=== PATIENT | female | born 1980 | race Caucasian/White ===

== ENCOUNTER 2023-12-05 19:19 | Outpatient (CLI) | payer BC ==
--- NOTE | 2023-12-10 17:42 | P.PCN ---
Date of Procedure: 12/05/23 Operative Findings: Polysomnography report Date of services 12/04/2022 History 43-year-old female patient, saw me in the office for symptoms of chronic hypersomnia sleepiness. Her Beaver score was 19. She had loud snoring, witnessed apneas, sleep fragmentation and chronic sleepiness. Based on that, a screening polysomnography was ordered. She has a Mallampati class IV Physical findings The patient has a height of 5 feet and 7 inches, weight of 224 pounds and a body mass index of 35.1 Technical description The patient was studied using a standard complex polysomnography protocol that included recording of the 2 EKG, Central, occipital and frontal EEG, right and left outer canthus EOG, submental EMG, right and left anterior tibialis EMG, respiratory airflow by thermocouple and or pressure/flow transducer, respiratory efforts by abdominal and thoracic PVDF belts, oxygen saturation by cable oximetry. Position by observation synchronized the PSG. . Equipment used: [email or web address]. Sleep characteristics The total recording duration was 426.5 minutes. The total sleep time was 400.5 minutes. The overall sleep efficiency was 93.9%. The wake after sleep onset time was 16.5 minutes. The sleep architecture was characterized by 3.9% stage I, 49.3% stage II, 26.2% stage III, 20.7% REM sleep. The total arousal index was 21.1. Respiratory analysis The sleep study showed a total of 186 obstructive events of which 2 with a obstructive apneas, 0 were mixed apneas, 184 obstructive hypopneas. No central apneas were noted. Overall apnea-hypopnea index was 26.2. Note that the patient's disease was not REM related Oxygenation analysis The patient's baseline pulse ox was 95% when awake. The patient spent approximately 9 minutes of the sleep time below pulse ox of 89%. Lowest pulse ox was 79% that occurred during non-REM sleep. Arousal summary The patient had a total of 141 arousals with an arousal index of 21.1. Respiratory arousal index was 8.1 Periodic movement events The patient had total of 14 periodic limb movement activity with an index of 2.1. There were 13 periodic limb movements with arousals with an index of 1.9 Cardiac summary Average heart rate was 82 with a minimum heart rate of 74 and a maximal heart rate of 90 Assessment Obstructive sleep apnea, moderate in severity with an AHI of 26.2. Mild nocturnal oxygen desaturation secondary to RAYMOND with a minimum pulse ox of 79% Chronic hypersomnia with an Beaver score of 19 Obesity with a BMI of 35 Abnormalities sleep architecture with over representation of stage III sleep High arousal index with a respiratory arousal index of 21.1 Plan Patient has symptomatic obstructive sleep apnea. Recommend weight loss. Optimize sleep hygiene measures. Extend sleep hours to an average of 7 to 8 hours per night. Proceed with an in lab CPAP titration.
== END 2023-12-06 05:40 | disposition home or self-care (01) ==
LOC: 3 N SLEEP 19:19
PROVIDERS: ATTEND Internal Medicine Critical Care Medicine
DX: G47.33 Obstructive sleep apnea (adult) (pediatric) (principal); G47.10 Hypersomnia, unspecified; G47.8 Other sleep disorders; E66.9 Obesity, unspecified; Z68.35 Body mass index [BMI] 35.0-35.9, adult
CPT/HCPCS: 95810

== ENCOUNTER 2024-01-01 19:43 | Outpatient (CLI) | payer BC ==
--- NOTE | 2024-01-20 21:51 | P.PCN ---
Date of Procedure: 01/01/24 Operative Findings: CPAP titration report Date of services 01/01/2024 43-year-old female patient diagnosed having obstructive sleep apnea, moderate severity with an AHI of 26. The patient has chronic hypersomnia with an Toledo score of 19. The patient is coming in for CPAP titration study Pertinent physical findings The patient has a height of 5 feet 7 inches, weight is 224 with a body mass index of 35.1 Technical description The patient was studied using a standard complex polysomnography protocol that included recording of the 2 EKG, Central, occipital and frontal EEG, right and left outer canthus EOG, submental EMG, right and left anterior tibialis EMG, respiratory airflow by thermocouple and or pressure/flow transducer, respiratory efforts by abdominal and thoracic PVDF belts, oxygen saturation by cable oximetry. Position by observation synchronized the PSG. CPAP titration was initiated stepwise titration was done to eliminate or respiratory events. Equipment used: [employer]. Sleep architecture The total recording duration was 415.5 minutes. The total sleep time was 324.0 minutes. The sleep efficiency was calculated to be at 78%. The latency to sleep onset was 18 minutes. The latency to REM sleep was 49.5 minutes. The sleep architecture was characterized by 3.4% stage I, 36.9% stage II, 33.2% stage III and 26.7% REM sleep. The total arousal index was 4.1. The wake after sleep onset was 73.5 minutes. Respiratory analysis The CPAP titration was started initially at a pressure of 5 cm of water and pressure was gradually increased by increments of 1 cm to reach a maximum pressure of 7 cm of water. This was successful titration. At the target pressure of 7 cm of water, the patient had complete elimination of the obstructive respiratory events at various sleep stages and body position. No oxygen saturation were encountered at the target CPAP pressure of 7 cm of water Oxygenation analysis Oxygenation improved and there was no desaturations encountered at a CPAP pressure of 7 cm Sleep continuity summary The patient had total of 22 arousals with an index of 4.1. Respiratory arousal index was 0.4 Periodic limb movement summary There was a total of 9 periodic limb movements with an index of 1.7 Cardiac summary Average heart rate was 72 with a minimum heart rate of 64 and maximum heart rate of 77 Assessment Obstructive sleep apnea with an AHI of 26 and the patient underwent successful CPAP titration Chronic hypersomnia with an Toledo score of 19 Obesity with a BMI of 35 Plan Initiate CPAP therapy at a pressure of 7 cm of water. Offered the patient a AirFit N 30 I small size nasal mask. Encourage weight loss. Optimize sleep hygiene measures. See me back in the office in 30 to 90 days to assess clinical response and compliancy.
== END 2024-01-02 05:30 | disposition home or self-care (01) ==
LOC: 3 N SLEEP 19:43
PROVIDERS: ATTEND Internal Medicine Critical Care Medicine
DX: G47.33 Obstructive sleep apnea (adult) (pediatric) (principal); G47.10 Hypersomnia, unspecified; E66.9 Obesity, unspecified; Z68.35 Body mass index [BMI] 35.0-35.9, adult
CPT/HCPCS: 95811